=== PATIENT | female | born 1945 | race Caucasian/White ===

== ENCOUNTER → 2023-08-17 08:07 | Outpatient (REF) | payer MEDICARE, SELFPAY | LOC: RAD 08:07 | PROVIDERS: ATTENDING PHYSICIAN Internal Medicine Gastroenterology; FAMILY PHYSICIAN Family Medicine | DX: K59.00 Constipation, unspecified (principal) | CPT/HCPCS: 74270 ==

== ENCOUNTER 2023-09-09 21:49 | Emergency (ER) | payer MEDICARE, SELFPAY ==
[2023-09-09 22:11] VITALS: BP 120/89
[2023-09-09 22:26] LABS: % Basophils 0.5 % (0-2); % Eosinophils 1.3 % (0-6); % Immature Granulocytes 0.2 % (0-0.5); % Lymphocytes 18.1 % (20.5-51.1); % Monocytes 6.9 % (1.7-9.3); Absolute Eosinophils 0.1 10^3/uL (0-0.7); Absolute Lymphocytes 1.5 10^3/uL (1.2-3.4); Absolute Monocytes 0.6 10^3/uL (0.1-0.6); Absolute Neutrophils 6.1 10^3/uL (1.4-6.5); Hematocrit 35.2 % (37.0-47.0); Hemoglobin 12.3 g/dL (12.0-16.0); Mean Corp Hgb Conc. 34.9 g/dL (33.0-37.0); Mean Corpuscular Hgb 31.1 pg (27.0-31.0); Mean Corpuscular Volume 89.1 fL (81.0-99.0); Mean Platelet Volume 9.4 fL (7.4-10.4); Nucleated Red Blood Cells % 0 %; Platelet Count 177 10^3/uL (130-400); Red Blood Cell Count 3.95 10^6/uL (4.20-5.40); Red Cell Dist. Width 12.5 % (11.5-14.5); White Blood Cell Count 8.4 10^3/uL (4.8-10.8)
[2023-09-09 22:47] LABS: ALT (SGPT) 21 U/L (0-35); AST (SGOT) 28 U/L (14-36); Albumin 4.8 g/dl (3.5-5.0); Alkaline Phosphatase 57 U/L (38-126); Blood Urea Nitrogen 24 mg/dl (7-17); Calcium 10.1 mg/dl (8.4-10.2); Carbon Dioxide 27 mmol/L (22-30); Chloride 106 mmol/L (98-107); Glucose 110 mg/dl (70-99); Lipase 36 U/L (23-300); Potassium 4.8 mmol/L (3.5-5.1); Sodium 139 mmol/L (135-145); Total Bilirubin 0.6 mg/dl (0.2-1.3); Total Protein 7.5 g/dl (6.3-8.2); eGFR > 60.00
--- NOTE | 2023-09-10 01:12 | ED.GENMED ---
History of Present Illness
General
Chief Complaint: Abdominal Pain
Source: patient and previous radiology exam (defacography 08/17/23-showing moderate-sized enterocele and severe weakness of the muscles of the pelvic floor. No rectocele, no prolapse nor intussusception.)
Exam Limitations: none
Time Seen by Provider: 09/10/23 00:24
Nursing documentation reviewed up to this point in time: agreed with
Travel History
Have you had any contact with someone who has COVID-19?: No
Do you have any symptoms of coronavirus? Fever > 100 degrees, chills, cough, shortness of breath, sore throat, loss of taste or smell, muscle aches, or headache?: No
History of Present Illness
History of Present Illness:
This is an 78-year-old woman who has history of hypertension, cervical dystonia, and receives Botox injections. She has remote history of mild diverticulitis 2016, history of chronic bowel issues with erratic bowel movements occasional fecal
incontinence and underwent colonoscopy 1 year ago showing diverticulosis of the sigmoid colon and hepatic flexure, internal hemorrhoids. Recommended to initiate daily MiraLAX but due to concern for fecal incontinence patient has instead been
watching her diet and using fiber supplements.
More recently she has had fecal urgency, incontinence and underwent Defacography August 16 which showed moderate sized enterocele and pelvic floor muscle weakness but no rectal prolapse, no intussusception, no rectocele.
Patient states she was referred to a specialist for further evaluation. She states the specialist has 'an [place] last name'
She presents tonight with somewhat abrupt onset of rectal pain and pressure with some fecal soiling but sense of difficulty passing her bowels. No bright red blood per rectum, she denies hard stools, no fever nor chills. No nausea nor vomiting.
She does admit to some urinary dribbling but no dysuria and currently does not feel the urge to urinate. No back pain, no weakness nor numbness.
She denies abdominal pain, instead she complains of rectal pressure and rectal pain that is worse with attempt at passing a bowel movement.
She also notes some chronic intermittent palpitations, feeling that her heart is skipping beats, and requests to have an EKG done stating 'they did an EKG the last time I was here' 'I just don't want to have to see another doctor'
Past History
Past History
ED Past Medical History: GERD and Other (Patient has dystonia and gets frequent injections of Botox. Glaucoma, Cellulitis, enterocele); Negative Asthma, HTN, Hypercholesterolemia or NIDDM
ED Past Surgical History: Gynecological (Hysterectomy)
Social History
Tobacco: Non-smoker
Alcohol: Daily (one glass, or with friends wine 2 glasses)
Drug: None
Personal:
Living: alone
Employment: Retired
Family History
Family History: Hypertension
Phy Exam
Physical Exam
Physical Exam:
GENERAL: 78-year-old woman appears her stated age, sitting upright on exam room bench. She is bright and alert, easily communicative and quite chatty, appears in no acute distress. She is mildly restless, mild akathisia which patient states is her
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
EYE: anicteric
NECK: Head preferentially rotated slightly to the left. There is no tenderness to palpation.
ENT: Lips are mildly dry. Oral mucosa is moist. No rhinorrhea.
CARDIAC: Regular rate and rhythm. no murmur.
LUNGS: Clear breath sounds bilaterally, no acute respiratory distress, no wheezes/rales/rhonchi
ABDOMEN: Soft, nondistended, without focal tenderness, no palpable masses, no r/g, no cvat. normoactive BS. Rectal exam reveals moderate amount of soft to firm brown stool that is heme-negative. No palpable masses.
NEUROLOGICAL: Alert and oriented x3, no focal neuro deficits. Gait is hill and steady. Mild akathisia, intermittent restlessness.
SKIN: Warm and dry, normal color, skin intact. No rash.
MUSCULOSKELETAL: No C/C/E. peripheral pulses are full and equal b/l. No palpable tenderness.
PSYCH: Normal and appropriate interaction.
Course
Orders/Labs/Results
Orders:
Orders
09/09/23 22:20
Complete Blood Count/With Diff Urgent
Comprehensive Metabolic Panel Urgent
Lipase Urgent
09/10/23 00:59
Bladder Scan- Treatment ONCE
Enema- Treatment ONCE
Type: Milk of Molasses
09/10/23 01:01
Cardiac Monitoring- Treatment ONCE
CR Obstruct Series W/pa Chest Urgent
Comment:
Reason For Exam: rectal pain, constipation
09/10/23 02:37
Lorazepam [Ativan] 2 mg PO NOW STA
Trihexyphenidyl [Artane] 2 mg PO NOW STA
Abnormal Lab Results
09/09/23
22:20
RBC 3.95 L 10^6/uL
(4.20-5.40)
Hct 35.2 L %
(37.0-47.0)
MCH 31.1 H pg
(27.0-31.0)
Lymphocytes % 18.1 L %
(20.5-51.1)
BUN 24 H mg/dl
(7-17)
Glucose 110 H mg/dl
(70-99)
09/09/23 22:20
09/09/23 22:20
Vital Signs
Initial and Last Documented VS:
Initial Vital Signs
Temp Pulse Resp BP Pulse Ox
98.6 F 74 18 120/89 94
09/09/23 22:11 09/09/23 22:11 09/09/23 22:11 09/09/23 22:11 09/09/23 22:11
Last Documented Vital Signs
Temp Pulse Resp BP Pulse Ox
98.6 F 78 18 155/112 94
09/09/23 22:11 09/10/23 01:45 09/10/23 01:45 09/10/23 01:28 09/09/23 22:11
MDM/Problems Addressed
Differential Diagnosis Includes:
Patient presents with rectal pain, worse with attempted defecation and noted to have moderate amount of stool within the rectal vault.
Abdomen is soft without appreciable tenderness. Bladder is not definitively palpably distended but concern for urinary retention thus will check bladder scan.
I suspect fecal impaction as cause for patient's pain and will plan for an enema.
Will check obstruction series, assess for potential bowel obstruction but abdominal exam is reassuring, soft and benign.
Labs are reassuring and within normal limits as well.
Patient complains of intermittent palpitations which has been an ongoing, chronic issue. Heart is regular rate and rhythm and previous EKG in May shows normal sinus rhythm without ectopy.
She denies chest pain or shortness of breath.
Will place on air sampling and monitoring and assess for potential arrhythmia.
*Radiology
Radiology exam reviewed: preliminary read by ED provider (Obstruction series shows moderate stool within the rectum as well as mild to moderate stool throughout the colon consistent with constipation. There is no obstruction, no free air.)
*Pulse Oximetry
Patient hypoxic: no
*H[employer] C[employer] Machine Interpretation
Rate: normal
Interpretation: normal
Rhythm: sinus
*Critical Care Note
Total Time (30-74mins, 75-104mins- exclusive of procedures): Not Applicable
Update Note
Update Note:
09/10/2023 0240 AM
Bladder scan shows 240 cc in the bladder, patient was able to get up and void immediately after bladder scan.
She continues to pass small amount of soft stool but obstruction series shows moderate stool within the rectum and moderate amount of stool throughout the colon consistent with constipation. No obstruction.
Will plan for enema here to hopefully relieve stool burden within the rectum.
Patient has an appointment with urology already scheduled for this week and an appointment with urogynecologist October 16.
Urged to resume daily fiber supplement as well as daily or every other day MiraLAX.
ED Attending Note
-
Portions of this chart may have been created with voice recognition software.� Occasional wrong word or��sound alike� substitutions may have occurred due to the inherent limitations of voice recognition software.
Discharge Plan
Departure
Patient Disposition: Home (Routine Discharge)
Date of Disposition: 09/10/23
Time of Disposition: 02:42
Patient with high blood pressure during this ER visit?: No
Condition: Good
Discharge Problem:
Fecal impaction in rectum, Constipation
Instructions: Constipation, Adult (DC), Fecal Impaction (DC)
Prescriptions:
No Action
trihexyphenidyl 2 MG tablet
2 mg PO Q4H
Patient Comments:
for movement disorder
acetaminophen [Tylenol Extra Strength] 500 mg Tablet
1,000 mg PO PRN PRN (Reason: pain)
CoQ-10
1 cap PO DAILY
Patient Comments:
does not know strength
Lumigan
1 drp BOTH EYES HS
Patient Comments:
does not know strength
Nexium
1 tab PO DAILY
Patient Comments:
does not know strength
Pepcid
1 cap PO DAILY
Women's Multivitamin
1 tab PO DAILY
fluticasone propionate [Flonase] 50 mcg/actuation [place],Suspension
1 spray INTRANASAL PRN PRN (Reason: congestion)
erythromycin 5 mg/gram (0.5 %) ointment
0.5 inch ophthalmic (eye) TID 7 Days Qty: 3.5 0RF
lorazepam [Ativan] 2 mg Tablet
2 mg PO Q4H
Referrals:
Mignon Martinez MD [Family Provider] - Call in 1-3 days for appt
Interventions
Interventions:
*Risk Screen - Suicide Last Done: 09/10/23 01:59
*General Assessment Last Done: 09/09/23 22:11
*Neglect/Abuse Screening Last Done: 09/10/23 01:59
ED- Fall Risk Assessment Last Done: 09/10/23 02:24
*ED COVID-19 Vaccine History Last Done: 09/09/23 22:11
PL-Plyuqq-Dlceowwuct Assessment Last Done: 09/10/23 01:57
Discharge Date and Time
Print Language: MOLDOVAN
[2023-09-10 01:28] VITALS: BP 155/112
[2023-09-10 03:05] VITALS: BP 139/104
[2023-09-10] MEDS: ATIVAN 0.5 MG PO (03:08)
[2023-09-10] MEDS: ARTANE 2 MG PO (03:08)
== END 2023-09-10 04:24 | disposition home or self-care (01) ==
LOC: EMR 21:49
PROVIDERS: Emergency Medicine; EMERGENCY PHYSICIAN Emergency Medicine; FAMILY PHYSICIAN Family Medicine
DX: K56.41 Fecal impaction (principal); I10 Essential (primary) hypertension; G24.3 Spasmodic torticollis; K21.9 Gastro-esophageal reflux disease without esophagitis; H40.9 Unspecified glaucoma; Z82.49 Family history of ischemic heart disease and other diseases of the circulatory system; Z87.19 Personal history of other diseases of the digestive system; Z90.710 Acquired absence of both cervix and uterus
CPT/HCPCS: 99283; 74022; 80053; 83690; 85025

== ENCOUNTER → 2023-12-25 18:13 | Outpatient (REF) | payer MEDICARE, SELFPAY | LOC: RAD 18:13 | PROVIDERS: ATTENDING PHYSICIAN Internal Medicine Gastroenterology; FAMILY PHYSICIAN Family Medicine | DX: K59.00 Constipation, unspecified (principal) | CPT/HCPCS: 74019 ==

== ENCOUNTER → 2024-01-05 16:18 | Outpatient (REF) | payer MEDICARE, SELFPAY | LOC: REG 16:18 | PROVIDERS: ATTENDING PHYSICIAN Internal Medicine Gastroenterology; FAMILY PHYSICIAN Family Medicine | DX: R19.7 Diarrhea, unspecified (principal) | CPT/HCPCS: 87045; 87046; 87427 ==

== ENCOUNTER → 2024-01-15 15:41 | Outpatient (REF) | payer MEDICARE, SELFPAY ==
[2024-01-15 17:06] LABS: Hematocrit 34.4 % (37.0-47.0); Hemoglobin 11.7 g/dL (12.0-16.0); Mean Corpuscular Hgb 30.2 pg (27.0-31.0); Mean Corpuscular Volume 88.9 fL (81.0-99.0); Mean Platelet Volume 9.7 fL (7.4-10.4); Platelet Count 212 10^3/uL (130-400); Red Blood Cell Count 3.87 10^6/uL (4.20-5.40); Red Cell Dist. Width 12.4 % (11.5-14.5); White Blood Cell Count 4.1 10^3/uL (4.8-10.8)
[2024-01-15 17:22] LABS: Blood Urea Nitrogen 13 mg/dl (7-17); Calcium 9.3 mg/dl (8.4-10.2); Carbon Dioxide 29 mmol/L (22-30); Chloride 103 mmol/L (98-107); Glucose 102 mg/dl (70-99); Iron 85 ug/dl (37-170); Potassium 4.5 mmol/L (3.5-5.1); Sodium 138 mmol/L (135-145); eGFR > 60.00
[2024-01-15 17:32] LABS: Percent Saturation 30 % (20-50); Total Iron Binding Capacity 275 ug/dl (265-497)
[2024-01-15 17:59] LABS: Ferritin 60.4 ng/ml (11.1-264.0)
== END ==
LOC: REG 15:41
PROVIDERS: ATTENDING PHYSICIAN Internal Medicine Gastroenterology; FAMILY PHYSICIAN Family Medicine
DX: R19.7 Diarrhea, unspecified (principal); K92.1 Melena; R10.30 Lower abdominal pain, unspecified
CPT/HCPCS: 36415; 80048; 82728; 83540; 83550; 85027

== ENCOUNTER → 2024-01-18 17:15 | Outpatient (REF) | payer MEDICARE, SELFPAY | LOC: REG 17:15 | PROVIDERS: ATTENDING PHYSICIAN Internal Medicine Gastroenterology | DX: R19.7 Diarrhea, unspecified (principal) | CPT/HCPCS: 83993; 87324; 87328; 87329; 87449 ==

== ENCOUNTER → 2024-01-19 11:10 | Outpatient (REF) | payer MEDICARE, SELFPAY | LOC: WDC 11:10 | PROVIDERS: ATTENDING PHYSICIAN Family Medicine | DX: Z12.31 Encounter for screening mammogram for malignant neoplasm of breast (principal) | CPT/HCPCS: 77063; 77067 ==

== ENCOUNTER → 2024-01-23 13:46 | Outpatient (REF) | payer MEDICARE, SELFPAY | LOC: RAD 13:46 | PROVIDERS: ATTENDING PHYSICIAN Internal Medicine Gastroenterology; FAMILY PHYSICIAN Family Medicine | DX: R10.30 Lower abdominal pain, unspecified (principal) | CPT/HCPCS: 74177; Q9967 ==

== ENCOUNTER → 2024-02-20 10:56 | Outpatient (REF) | payer MEDICARE, SELFPAY ==
[2024-02-20 12:00] LABS: % Basophils 0.3 % (0-2); % Eosinophils 2.4 % (0-6); % Immature Granulocytes 0.3 % (0-0.5); % Lymphocytes 17.2 % (20.5-51.1); % Monocytes 8.3 % (1.7-9.3); % Neutrophils 71.5 % (42.2-75.2); Absolute Eosinophils 0.2 10^3/uL (0-0.7); Absolute Lymphocytes 1.1 10^3/uL (1.2-3.4); Absolute Monocytes 0.5 10^3/uL (0.1-0.6); Absolute Neutrophils 4.4 10^3/uL (1.4-6.5); Hematocrit 37.4 % (37.0-47.0); Hemoglobin 12.6 g/dL (12.0-16.0); Mean Corp Hgb Conc. 33.7 g/dL (33.0-37.0); Mean Corpuscular Hgb 31.7 pg (27.0-31.0); Mean Corpuscular Volume 94.2 fL (81.0-99.0); Mean Platelet Volume 9.6 fL (7.4-10.4); Nucleated Red Blood Cells % 0 %; Platelet Count 171 10^3/uL (130-400); Red Blood Cell Count 3.97 10^6/uL (4.20-5.40); Red Cell Dist. Width 12.9 % (11.5-14.5); White Blood Cell Count 6.2 10^3/uL (4.8-10.8)
[2024-02-20 12:41] LABS: ALT (SGPT) 31 U/L (0-35); AST (SGOT) 29 U/L (14-36); Albumin 4.4 g/dl (3.5-5.0); Alkaline Phosphatase 52 U/L (38-126); Blood Urea Nitrogen 21 mg/dl (7-17); Calcium 9.7 mg/dl (8.4-10.2); Carbon Dioxide 32 mmol/L (22-30); Chloride 101 mmol/L (98-107); Direct Bilirubin 0.3 mg/dl (0.0-0.4); Glucose 110 mg/dl (70-99); Potassium 4.7 mmol/L (3.5-5.1); Sodium 141 mmol/L (135-145); Total Protein 6.5 g/dl (6.3-8.2); eGFR > 60.00
[2024-02-20 13:26] LABS: Erythrocyte Sed Rate 5 mm/hour (0-20)
[2024-02-20 16:41] LABS: Urine Albumin Negative (Neg - Trace); Urine Bilirubin Negative (Negative); Urine Character Slightly Cloudy (Clear); Urine Color Yellow; Urine Glucose Negative (Negative); Urine Ketone Negative (Negative); Urine Leukocyte 2+ (Negative); Urine Nitrite Negative (Negative); Urine Occult Blood Negative (Negative); Urine Specific Gravity 1.015 (<1.030); Urine Urobilinogen Negative (Neg - 1+)
[2024-02-20 17:52] LABS: Urine Red Blood Cell 0-2 /HPF (0-2); Urine White Cell 16-20 /HPF (0-5)
[2024-02-20 17:53] LABS: Urine Squamous Cell 0-2 /LPF (Few)
== END ==
LOC: REG 10:56
PROVIDERS: ATTENDING PHYSICIAN Internal Medicine Gastroenterology; FAMILY PHYSICIAN Family Medicine
DX: K65.4 Sclerosing mesenteritis (principal); R19.5 Other fecal abnormalities
CPT/HCPCS: 36415; 80053; 81003; 81015; 82248; 82653; 82705; 85025; 85652; 86140

== ENCOUNTER → 2024-03-25 11:16 | Outpatient (REF) | payer MEDICARE, SELFPAY | LOC: REG 11:16 | PROVIDERS: ATTENDING PHYSICIAN Internal Medicine Gastroenterology; FAMILY PHYSICIAN Family Medicine | DX: K65.4 Sclerosing mesenteritis (principal) | CPT/HCPCS: 36415; 84110; 84120; 86316 ==

== ENCOUNTER 2024-07-15 06:28 | Day surgery (SDC) | payer MEDICARE, SELFPAY ==
[2024-07-15] VITALS (9 sets, daily range): BP systolic 121–149; BP diastolic 50–78; BMI 26.6
--- NOTE | 2024-07-15 10:10 | HP.FOC2 ---
Focused History & Physical
Chief Complaint
HPI:
Chief Complaint: History mesenteric panniculitis
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 Recent CT imaging shows progressive inflammation of the small bowel mesentery and
prominent mesenteric lymph nodes. 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 Consideration has been given towards utilization of tamoxifen therapy but surgical biopsy
requested to help guide treatment options and further care. Patient's predominant symptoms are left lower quadrant abdominal pain which is variable on a daily basis. Erratic stools with both constipation and diarrhea.
Relevant Past Medical History: Other (Idiopathic torsion dystonia, multinodular goiter, GERD, glaucoma, ankylosing spondylitis, osteopenia, DDD cervical spine with stenosis, vitamin D deficiency, history of falls, vertigo, anxiety)
Relevant Social History: Negative
Relevant Family History: Negative
Relevant Past Surgical History: Positive for (Cataracts, breast augmentation, hysterectomy, tonsillectomy)
Review of Systems
Review of Pertinent Systems: All Systems Negative
Medication
See Medication form for detailed medications: Yes
Medication List (including Herbals & OTC):
trihexyphenidyl 2 mg tablet 1.5 mg PO Q4H 04/17/10
acetaminophen 500 mg tablet (Tylenol Extra Strength) 1,000 mg PO PRN PRN pain 04/22/22
bimatoprost 0.01 % eye drops (Lumigan) 1 drp BOTH EYES HS 04/30/24
lorazepam 0.5 mg tablet 0.25 mg PO Q4H 04/30/24
multivitamin 1 tab PO DAILY 04/30/24
onabotulinumtoxinA 100 unit solution for injection (Botox) 1 unit [id number] 04/30/24
psyllium husk 3.4 gram/5.4 gram oral powder (Metamucil) 1 tbsp PO ONCE 04/30/24
Medications Reviewed: Yes
Allergies and Reactions
Patient has Allergies: Yes
Noted Allergies and Reactions:
Allergy/AdvReac Type Severity Reaction Status Date / Time
cephalexin [From Keflex] Allergy Rash Verified 07/10/24 15:29
ciprofloxacin [From Cipro] AdvReac DIARRHEA Verified 07/10/24 15:29
Pertinent Physical Exam
All Other Systems: Negative
Head/Neck: Normal
Lungs: Normal
Heart: Normal
Abdomen: Normal
Extremities: Normal
Neurological: Normal
Diagnosis / Assessment
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
Plan / Procedure
Diagnostic laparoscopy, laparoscopic mesenteric biopsy/mesenteric lymph node biopsy
Anesthesia/Sedation to be done by Anesthesia Provider: Yes
--- NOTE | 2024-07-15 10:14 | W.SUR.PREOP ---
Pre-Operative Surgical Note
-
I have examined this patient prior to the performance of the scheduled procedure.
The patient's condition is unchanged from the time of the current History and
Physical and the patient is able to undergo the scheduled procedure.
[2024-07-15] MEDS: NORMOSOL-R/PLASMALYTE-A 1000 IV (11:30)
[2024-07-15] MEDS: TYLENOL 1000 MG PO (11:56)
--- NOTE | 2024-07-15 13:57 | W.IMMPOSTOP ---
Addendum entered and electronically signed by Aristides Zambrano MD 07/15/24 14:08:
#[id number]
Original Note:
Surgical Immed Post Op Note
-
Primary Surgeon: Aristides Zambrano MD
Assisting Surgeon: Yoshi Thomas MD, PGY1
Pre-op Diagnosis: Mesenteric panniculitis, chronic abdominal pain
Post-op Diagnosis: Mesenteric panniculitis, chronic abdominal pain
Procedure Performed: Laparoscopic mesenteric biopsy
Anesthesia Type: GETA +0.25% Marcaine
Specimen / Cultures: Mesenteric biopsy with lymph node
Estimated Blood Loss: 4 mL
Complications: None immediate
Operative Findings: Thickening of peritoneum overlying central small bowel mesentery. No masses, no significant lymphadenopathy visible. Mesenteric biopsy performed overlying central area of chronic inflammation with associated lymph node.
[2024-07-15] MEDS: DILAUDID 0.5 MG IV (14:05)
[2024-07-15] MEDS: ZOFRAN 4 MG IV (14:13)
== END 2024-07-15 16:07 | disposition home or self-care (01) ==
LOC: SDS 06:28
PROVIDERS: ATTENDING PHYSICIAN Surgery
DX: D17.79 Benign lipomatous neoplasm of other sites (principal); K65.4 Sclerosing mesenteritis
CPT/HCPCS: 49321; 88305; J1335